=== PATIENT | male | born 1990 | race Caucasian/White ===

== ENCOUNTER 2019-07-03 12:21 | Emergency (ER) | payer SELFPAY ==
[~2019-07-03] VITALS: Ht 190.5 cm; Wt 85.3 kg
[2019-07-03] MEDS ORDERED: SODIUM CHLORIDE 0.9% 1,000ML IVBOLUS ONE (12:30)
[2019-07-03] MEDS ORDERED: ONDANSETRON 2MG/ML, 2ML IVPush ONE (12:30)
[2019-07-03 12:40] LABS: MEAN CORPUSCULAR HGB CONC 32.6 g/dL (33.2-36.2); MEAN PLATELET VOLUME 8.2 fL (7.4-10.4); PLATELET COUNT 369 x10^3/uL (130-400); RED BLOOD COUNT 5.89 x10^6/uL (4.38-5.82); RED CELL DISTRIBUTION WIDTH 13.4 % (9.4-14.8)
[2019-07-03 12:49] LABS: ALANINE AMINOTRANSFERASE 59 U/L (12-78); ALBUMIN 4.9 g/dL (3.4-5.0); ANION GAP 20 mmol/L (5-15); CHLORIDE 107 mmol/L (98-107)
[2019-07-03 12:51] LABS: ALKALINE PHOSPHATASE 100 U/L (45-117); BILIRUBIN,TOTAL 0.8 mg/dL (0.2-1.0); TOTAL PROTEIN 8.7 g/dL (6.4-8.2)
--- NOTE | 2019-07-03 13:07 | NUR ---
PT BACK FROM CT. IV HAS BEEN STARTED, PT MEDICATED FOR ACTIVE VOMITING. PT SWEATING PROFUSELY, PT DENIED ANY RECENT DRUG USE BESIDES MARIJUANA, WHICH PT STATED HE HAS SMOKED ON PREVIOUS OCCATIONS WITHOUT ADVERSE EFFECTS. PT CONTINUES TO SWEAT MODERATELY AT THIS TIME. FSBS CHECKED, SEE CHARTED. PT VSS. WILL CONTINUE TO MONITOR. BILAT BEDRAILS UP. PT ON CARDIAC AND VITALS MONITORS.
[2019-07-03 13:11] LABS: MD YES
[2019-07-03 13:12] LABS: SEG#(MANUAL) 5.98 x10^3/uL (1.8-6.8); SEGS% (MANUAL) 46 % (42-75)
[2019-07-03] MEDS ORDERED: FLUO40CA9 PO (13:12)
[2019-07-03] MEDS ORDERED: REXULTI PO (13:12)
[2019-07-03 13:13] LABS: <RBC MORPHOLOGY> NORMAL; BAND#(MANUAL) 0.13 x10^3/uL; BANDS%(MANUAL) 1 % (0-7); EOS#(MANUAL) 0.26 x10^3/uL (0.0-0.4); EOS% (MANUAL) 2 % (1-7); LYMPH#(MANUAL) 5.59 x10^3/uL (1-3.4); LYMPHS% (MANUAL) 43 % (22-44); MONOS#(MANUAL) 1.04 x10^3/uL (0.3-2.7); MONOS% (MANUAL) 8 % (2-9)
[2019-07-03 13:14] LABS: <PLATELET ESTIMATE> ADEQUATE; <PLT MORPHOLOGY> NORMAL PLT MORPH
--- NOTE | 2019-07-03 13:40 | NUR ---
PT MOVED TO ROOM 18. PT A&OX4, DIAPHORESIS MINIMAL CURRENTLY, FAMILY AT BEDSIDE. PT GIVEN BLANKET, CRACKERS AND WATER PER ERP REQUEST. WILL CONTINUE TO MONITOR.
--- NOTE | 2019-07-03 14:06 | NUR ---
ASSUMED CARE. PT EATING CRACKERS AND SIPPING WATER. A&O, TALKING WITH FAMILY
[2019-07-03 14:07] VITALS: BP 126/72
--- NOTE | 2019-07-03 14:43 | NUR ---
up and walking, no dizziness. d/c given and ambulated to discharge window, steady gait
== END 2019-07-03 14:46 | disposition home or self-care (01) ==
LOC: ED 14:30
DX: S06.0X1A Concussion with loss of consciousness of 30 minutes or less, initial encounter (principal); R55 Syncope and collapse; W18.30XA Fall on same level, unspecified, initial encounter; Y93.89 Activity, other specified; Y92.239 Unspecified place in hospital as the place of occurrence of the external cause; Y99.8 Other external cause status
CPT/HCPCS: 36415; 70450; 72125; 80053; 82962; 85025; 93005; 96374; 96375; 99291; J2405; J7030